=== PATIENT | male | born 1960 | race American Indian/Alaskan Native ===

== ENCOUNTER 2020-04-02 17:56 | Emergency (ER) | payer OTHER ==
--- NOTE | 2020-04-02 19:49 | Event Note ---
ED Screening Note Date of service: 04/02/20 Time: 19:48 ED Screening Note: pt is a 59 y/o aam with hx of htn who presents for abd pain with n/v x 3 days, pt denies fever or chills, last po intake yesterday, This initial assessment/diagnostic orders/clinical plan/treatment(s) is/are subject to change based on patients health status, clinical progression and re- assessment by fellow clinical providers in the ED. Further treatment and workup at subsequent clinical providers discretion. Patient/guardian urged not to elope from the ED as their condition may be serious if not clinically assessed and managed. Initial orders include: CMP, CBC, Lipase, EKG, CXR , pt , ptt
[2020-04-02 19:56] LABS: Basophils # (Auto) 0.1 K/mm3 (0.0-0.1); Basophils % (Auto) 0.6 % (0.0-1.8); Hematocrit 41.3 % (35.5-45.6); Hemoglobin 13.9 gm/dl (11.8-15.2); Lymphocytes # (Auto) 1.8 K/mm3 (1.2-5.4); Lymphocytes % (Auto) 17.3 % (13.4-35.0); Mean Corpuscular HGB Conc 34 % (32-34); Mean Corpuscular Volume 97 fl (84-94); Monocytes % (Auto) 9.3 % (0.0-7.3); Platelet Count 334 K/mm3 (140-440); Red Blood Count 4.27 M/mm3 (3.65-5.03); Red Cell Distribution Width 13.1 % (13.2-15.2)
--- NOTE | 2020-04-02 20:09 | XRay Report ---
CHEST 2 VIEWS INDICATION / CLINICAL INFORMATION: epigastric pain. COMPARISON: None available. FINDINGS: SUPPORT DEVICES: None. HEART / MEDIASTINUM: No significant abnormality. LUNGS / PLEURA: Clear lungs. No significant pleural effusion. No pneumothorax. ADDITIONAL FINDINGS: No significant additional findings. IMPRESSION: 1. No acute abnormality of the chest. Signer Name: Richard Koenig MD Signed: 04/02/2020 8:05 PM Workstation Name: [id number]
[2020-04-02 20:18] LABS: Alanine Aminotransferase 14 units/L (7-56); Albumin 3.6 g/dL (3.9-5); Blood Urea Nitrogen 7 mg/dL (9-20); Calcium 9.3 mg/dL (8.4-10.2); Hemolysis Index 3
[2020-04-02 20:24] LABS: BUN/Creatinine Ratio 12
[2020-04-02 20:46] LABS: INR 1.16 (0.87-1.13)
[2020-04-02 20:47] LABS: Partial Thromboplastin Time 33.2 Sec. (24.2-36.6)
--- NOTE | 2020-04-03 01:34 | Cat Scan Report ---
CT ABDOMEN AND PELVIS WITHOUT CONTRAST INDICATION: Hematuria, lower abdominal pain radiating to the back CONTRAST: Without IV COMPARISON: None available. All CT scans at this location are performed using CT dose reduction for ALARA by means of automated e xposure control. FINDINGS: Lung bases are clear of infiltrates and show minimal chronic changes. No pneumoperitoneum i s seen. Tiny umbilical hernia is noted with minimal protrusion of small bowel but without acute alexandra e seen. No evidence of bowel obstruction is noted. Mild colonic diverticulosis is seen without eviden ce of diverticulitis. No focal inflammatory changes are seen. Appendix appears within normal limits. Mild increase in colonic stool burden is noted, particularly on the right, consistent with constipati on. Liver shows fatty infiltration and is enlarged. Hepatic length measures 18.7 cm. No focal masses are seen. However, the margin of the liver has a mildly nodular appearance suggestive of early cirrhosis. Spleen appears within normal limits. No obvious varices are seen. Gallbladder and bile ducts show no abnormalities. No masses are seen. No lymphadenopathy is noted. No free fluid is seen. Possible minimal left nephrolithiasis is seen with a punctate calcification in the midportion. No ure teral calculi or dilatation are seen. Adjacent to the upper left ureter is a calcification which I be lieve is just anterior to the ureter and not within the ureter. No ureteral dilatation is seen. Urina ry bladder shows no definite abnormalities. Prostate and seminal vesicles appear within normal limits . IMPRESSION: 1. Evidence of mild right-sided constipation 2. Minimal left nephrolithiasis 3. Fatty infiltration of the liver with hepatomegaly and findings suggesting early cirrhosis Signer Name: Franklin Mishra MD Signed: 04/03/2020 1:29 AM Workstation Name: [id number]
[2020-04-03] MEDS ORDERED: KETOROLAC 30 MG/1 ML INJ IM ONE (02:09)
[2020-04-03] MEDS ORDERED: ACETAMINOPHEN 500 MG TAB PO ONE (02:09)
--- NOTE | 2020-04-03 02:17 | Emergency Department Report ---
ED Back Pain/Injury HPI - General Chief Complaint: Abdominal Pain Stated Complaint: PAIN Time Seen by Provider: 04/03/20 00:29 Source: patient Limitations: No Limitations - History of Present Illness Initial Comments: Chief complaint: Back pain for about a week HPI: This is a 59-year-old male with history of alcohol and tobacco dependence who presents with left flank pain radiating to the lower abdomen for 1 week. He may have had blood in his urine. Patient cannot definitively recall. Pain is worse with ambulation. Patient's pain is worse when he stands up. He requires a crutch in order to move. Pain is achy. He denies any trauma. Denies any weight loss. Denies any fever. Patient states his also has had left lower quadrant abdominal pain with nausea vomiting for the past 3 days. Nondescript abdominal pain. Dull. No change with movement. Patient drinks half a pint up to one pint of liquor daily. No previous history of hypertension. He does not see a physician on a regular basis. 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. Complaint: back pain -: Gradual, week(s) (1 week) Similar Symptoms Previously: No Radiation: abdomen Severity: moderate Quality: dull, aching Consistency: constant Improves With: none Worsens With: movement Associated Symptoms: abdominal pain, nausea/vomiting - Related Data Previous Rx's Medication Instructions Recorded Last Taken Type Cyclobenzaprine [Flexeril] 10 mg PO TID PRN #20 tablet 04/03/20 Unknown Rx Docusate Sodium [Colace] 100 mg PO BID 7 Days #14 capsule 04/03/20 Unknown Rx Ibuprofen [Motrin 400 MG tab] 400 mg PO TID 3 Days #12 tablet 04/03/20 Unknown Rx oxyCODONE /ACETAMINOPHEN [Percocet 1 tab PO Q6HR PRN #10 tablet 04/03/20 Unknown Rx 5/325] Allergies Allergy/AdvReac Type Severity Reaction Status Date / Time No Known Allergies Allergy Unverified 04/02/20 19:08 ED Review of Systems ROS: Stated complaint: PAIN Other details as noted in HPI Comment: All other systems reviewed and negative Constitutional: denies: fever, malaise Respiratory: denies: cough, shortness of breath Cardiovascular: denies: chest pain Gastrointestinal: abdominal pain, nausea, vomiting Musculoskeletal: back pain ED Past Medical Hx - Past Medical History Previous Medical History?: Yes Additional medical history: Alcohol dependence - Surgical History Past Surgical History?: No - Social History Smoking Status: Current Every Day Smoker Substance Use Type: Alcohol - Medications Home Medications: Home Medications Medication Instructions Recorded Confirmed Last Taken Type Cyclobenzaprine [Flexeril] 10 mg PO TID PRN #20 tablet 04/03/20 Unknown Rx Docusate Sodium [Colace] 100 mg PO BID 7 Days #14 capsule 04/03/20 Unknown Rx Ibuprofen [Motrin 400 MG tab] 400 mg PO TID 3 Days #12 tablet 04/03/20 Unknown Rx oxyCODONE /ACETAMINOPHEN [Percocet 1 tab PO Q6HR PRN #10 tablet 04/03/20 Unknown Rx 5/325] ED Physical Exam - General Limitations: No Limitations General appearance: alert, in no apparent distress, other (Appears chronically ill, disheveled, dirty clothing, flaky skin on face) - Head Head exam: Present: atraumatic, normocephalic - Eye Eye exam: Present: normal appearance - ENT ENT exam: Present: mucous membranes dry, other (poor dentition) - Neck Neck exam: Present: normal inspection, full ROM - Respiratory Respiratory exam: Present: normal lung sounds bilaterally. Absent: respiratory distress, wheezes, rales, rhonchi - Cardiovascular Cardiovascular Exam: Present: regular rate, normal rhythm, normal heart sounds. Absent: systolic murmur, diastolic murmur, rubs, gallop - GI/Abdominal GI/Abdominal exam: Present: soft, normal bowel sounds. Absent: distended, tenderness, guarding, rebound - Rectal Rectal exam: Present: deferred - Extremities Exam Extremities exam: Present: normal inspection - Back Exam Back exam: Present: normal inspection, full ROM. Absent: tenderness, CVA tenderness (L) - Neurological Exam Neurological exam: Present: alert, oriented X3 - Psychiatric Psychiatric exam: Present: normal affect, normal mood - Skin Skin exam: Present: warm, dry, intact, normal color. Absent: rash ED Course Vital Signs 04/02/20 19:10 Temperature 98.2 F Pulse Rate 108 H Respiratory 16 Rate Blood Pressure 204/107 [Right] O2 Sat by Pulse 99 Oximetry ED Medical Decision Making - Lab Data Result diagrams: 04/02/20 19:41 04/02/20 19:41 Laboratory Results - last 24 hr 04/02/20 04/02/20 04/02/20 19:41 19:41 19:41 WBC 10.3 RBC 4.27 Hgb 13.9 Hct 41.3 MCV 97 H MCH 33 H MCHC 34 RDW 13.1 L Plt Count 334 Lymph % (Auto) 17.3 [place] % (Auto) 9.3 H Eos % (Auto) 0.0 Baso % (Auto) 0.6 Lymph # (Auto) 1.8 [place] # (Auto) 1.0 H Eos # (Auto) 0.0 Baso # (Auto) 0.1 Seg Neutrophils % 72.8 H Seg Neutrophils # 7.5 PT 14.6 INR 1.16 H APTT 33.2 Sodium 136 L Potassium 3.0 L Chloride 91.9 L Carbon Dioxide 35 H Anion Gap 12 BUN 7 L Creatinine 0.6 L Estimated GFR > 60 BUN/Creatinine Ratio 12 Glucose 179 H Calcium 9.3 Total Bilirubin 0.50 AST 23 ALT 14 Alkaline Phosphatase 93 Troponin T < 0.010 Total Protein 7.8 Albumin 3.6 L Albumin/Globulin Ratio 0.9 - Radiology Data Radiology results: report reviewed, image reviewed CT ABDOMEN AND PELVIS WITHOUT CONTRAST INDICATION: RIGHT sided flank pain with Dysuria, history of urolithiasis CONTRAST: Without IV COMPARISON: None available. All CT scans at this location are performed using CT dose reduction for ALARA by means of automated exposure control. FINDINGS: Lung bases are clear of infiltrates. No pneumoperitoneum is seen. No significant abdominal wall herniation is noted. No free fluid is seen. No lymphadenopathy is noted. Mild lower abdominal aortic ectasia is seen only to a diameter 2.8 cm. Mild fatty infiltration of the liver is noted without obvious focal mass. Liver is enlarged and has a length of 22 cm. Spleen appears within normal limits. Pancreas shows mild fatty infiltration. Gallbladder is contracted but shows no obvious acute abnormalities or calculi. No biliary dilatation is seen. No evidence of bowel obstruction is noted. Appendix appears within normal limits. No focal inflammatory changes are seen. Mild colonic diverticulosis is seen without evidence of diverticulitis. Small probable cyst is seen in the midportion of the left kidney. Left kidney s hows minimal nephrolithiasis with tiny punctate calculi in the mid to lower portions. The right kidney shows scattered tiny calculi in the mid lower portions as well as a calculus in the lower pole measuring 10 mm. Edema is seen surrounding the right kidney and upper ureter. The right ureter is slightly prominent compared to the left though I do not see a calculus in the ureter or the urinary bladder. Urinary bladder is mostly decompressed. Prostate and seminal vesicles appear within normal limits. IMPRESSION: 1. Findings on the right suggest recent passage of a calculus without an obvious obstructing lesion seen at this time 2. Bilateral nephrolithiasis, worse on the right CHEST 2 VIEWS INDICATION / CLINICAL INFORMATION: epigastric pain. COMPARISON: None available. FINDINGS: SUPPORT DEVICES: None. HEART / MEDIASTINUM: No significant abnormality. LUNGS / PLEURA: Clear lungs. No significant pleural effusion. No pneumothorax. ADDITIONAL FINDINGS: No significant additional findings. IMPRESSION: 1. No acute abnormality of the chest. - Medical Decision Making 1. Back pain: Suspect musculoskeletal pain. Patient may have degenerative disc disease. No evidence of intra-abdominal process which would correlate to patient's symptoms. Patient was prescribed [place] Flexeril ibuprofen. 2. Abdominal pain with nausea vomiting differential diagnosis includes constipation, alcoholic gastritis, peptic ulcer disease. No indication acute inflammatory obstructive process on CT scan. I will prescribe Colace. 3. 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 Patient admits to alcohol dependence. I strongly encouraged him to completely stop drinking alcohol considering the findings of early cirrhosis on CT scan. 4. Hypertensive urgency: No indication of alcohol withdrawal. Patient states his last drink was 2 weeks ago. Patient has not been diagnosed with hypertension. However I suspect due to severely elevated blood pressure he has underlying hypertension. I strongly encouraged him to follow-up with our outpatient medical physician. On general exam, patient appears to be in poor health. Skin appearance aged. Poor hygiene. Patient understands that he will need primary care in order to have definitive diagnoses. Critical care attestation.: If time is entered above; I have spent that time in minutes in the direct care of this critically ill patient, excluding procedure time. ED Disposition Clinical Impression: Musculoskeletal back pain, Hypertensive urgency, Abdominal pain, Cirrhosis of liver Disposition: DC-01 TO HOME OR SELFCARE Is pt being admited?: No Does the pt Need Aspirin: No Condition: Stable Instructions: Acute Back Pain, Adult, Abdominal Pain, Adult, [id number], Cirrhosis, Hypertension, Adult, [id number] Prescriptions: Docusate Sodium [Colace] 100 mg PO BID 7 Days #14 capsule Cyclobenzaprine [Flexeril] 10 mg PO TID PRN #20 tablet PRN Reason: Muscle Spasm Ibuprofen [Motrin 400 MG tab] 400 mg PO TID 3 Days #12 tablet oxyCODONE /ACETAMINOPHEN [Percocet 5/325] 1 tab PO Q6HR PRN #10 tablet PRN Reason: Pain Referrals: BOB SANON MD [Staff Physician] - 3-5 Days
[2020-04-03 02:37] VITALS: BP 148/84
== END 2020-04-03 02:37 | disposition home or self-care (01) ==
LOC: ED 17:56
DX: M54.9 Dorsalgia, unspecified (principal); I16.0 Hypertensive urgency; K74.60 Unspecified cirrhosis of liver; F17.200 Nicotine dependence, unspecified, uncomplicated; Z79.899 Other long term (current) drug therapy
CPT/HCPCS: 36415; 71046; 74176; 80053; 84484; 85025; 85610; 85730; 96372; 99284; J1885